=== PATIENT | female | born 1995 | race Two or more races ===

== ENCOUNTER 2022-09-25 10:43 | Emergency (ER) | payer OTHER ==
[~2022-09-25] VITALS: Ht 167.6 cm; Wt 86.2 kg
[2022-09-25 18:38] VITALS: BP 130/94; TEMP 98.2; O2SAT 100
== END 2022-09-25 11:40 | disposition home or self-care (01) ==
LOC: ER 10:49
DX: M54.2 Cervicalgia (principal); Z88.8 Allergy status to other drugs, medicaments and biological substances